=== PATIENT | male | born 1980 | race Caucasian/White ===

== ENCOUNTER 2020-04-05 06:50 | Outpatient (CLI) | payer OTHER, SELFPAY | END 2020-04-05 06:51 | disposition home or self-care (01) | PROVIDERS: PCP Internal Medicine; Visit Provider Plastic Surgery | DX: Z01.818 Encounter for other preprocedural examination (principal); Z11.59 Encounter for screening for other viral diseases | CPT/HCPCS: 87635; C9803; U0003 ==

== ENCOUNTER 2020-04-07 00:38 | Outpatient (CLI) | payer OTHER, SELFPAY ==
[2020-04-07 17:59] LABS: SARS-CoV-2 RNA PCR Negative
== END 2020-04-07 00:39 | disposition home or self-care (01) ==
LOC: ANHCOVIDDT 00:38
PROVIDERS: PCP Internal Medicine; Visit Provider Plastic Surgery
DX: Z01.818 Encounter for other preprocedural examination (principal); Z11.59 Encounter for screening for other viral diseases
CPT/HCPCS: 87635; C9803; U0003

== ENCOUNTER 2020-04-08 02:28 | Day surgery (SDC) | payer OTHER, SELFPAY ==
[2020-03-31 10:47] VITALS: BMI 30.7
--- NOTE | 2020-04-06 20:47 | HP_ITS ---
DATE OF SERVICE: DATE OF PLANNED SERVICE: 04/07/2020. PREOPERATIVE DIAGNOSES: Left carpal tunnel syndrome and left ulnar neuropathy at the elbow. HISTORY: The patient has had symptoms for several months. He has a nerve conduction test indicating left ulnar neuropathy and right carpal tunnel syndrome. By exam and history, he has both conditions on both upper extremities. The right was slightly worse and has been operated. He is prepared for these surgeries with the knowledge that there can be infections and nerve injury, scarring, and other possible complications. MEDICATIONS: He takes Celexa only. ALLERGIES: HE HAS NO KNOWN ALLERGIES TO MEDICATION. PAST SURGICAL HISTORY: He does not list surgeries prior to the recent neuroplasties. He does not list chronic ailments. He is a nonsmoker. REVIEW OF SYSTEMS: Otherwise negative. FAMILY HISTORY: Noncontributory. SOCIAL HISTORY: He lives in [place]. He works for the [employer]. He is a patient of Dr. Servin. PHYSICAL EXAMINATION: GENERAL: He is 6 feet tall, 250 pounds. He is in no acute distress. HEENT: Unremarkable. CHEST: Clear to auscultation. HEART: Regular rate and rhythm by palpation. ABDOMEN: Soft and nontender. EXTREMITIES: Specifically reveals tenderness of both thenar masses. He has a Tinel's at both wrists. He has provocative pain in both forearms. He has a Tinel's at both elbows and wrist compression test was positive bilaterally. ASSESSMENT: Left carpal tunnel syndrome and left cubital tunnel syndrome and our plan is to release the left carpal tunnel and left cubital tunnel, and he is aware that there may be need to transpose that nerve anterior to the medial epicondyle. Raven I MT: Luci
--- NOTE | 2020-04-08 07:49 | WPDHPUPDATE1 ---
History and Physical Update Update Date/Time: 04/08/20 07:49 History and Physical has been reviewed, including an updated exam of the patient. There are NO changes in the patient's condition. Risks, benefits, and alternatives have been discussed and questions answered. Patient agrees to proceed with procedure.
[2020-04-08] MEDS: LACTATED RINGERS 1,000 ML 30 ML IV CONT (08:37)
[2020-04-08 08:51] VITALS: BP 123/69; PULSE 52; RESP 20; TEMP 36.4; O2SAT 98
--- NOTE | 2020-04-08 09:24 | P.PNAN_ITS ---
Anes - Initial Pre Proc Eval Procedure: Operation Date: 04/08/20 10:15 Proposed Procedures p Left Carpal Tunnel Release - Morales Toribio MD s Left Ulnar Neuroplasty - Morales Toribio MD Date/Time: 04/08/20 09:24 Surgeon: Morales Toribio MD Pre Op Diagnosis: Left Carpal Tunnel Syndrome, Left Cubital Tunnel Patient Data Age: 39 Gender: M Height: 5 ft 11 in Weight: 99.6 kg Last Vital Signs Temp 36.4 C L 04/08/20 08:51 Pulse 52 L 04/08/20 08:51 Resp 20 04/08/20 08:51 BP 123/69 04/08/20 08:51 Pulse Ox 98 04/08/20 08:51 Allergies Allergy/AdvReac Type Severity Reaction Status Date / Time No Known Allergies Allergy Unknown Verified 04/08/20 08:54 Home Medications Medication Instructions Recorded Confirmed Type citalopram 10 mg tablet 10 mg PO DAILY #90 tablet 10/13/19 04/08/20 Rx alprazolam 0.5 mg tablet 0.5 mg PO BID PRN #30 tablet 03/15/20 04/08/20 Rx Patient hx anesthesia problems: none Family hx anesthesia problems: none [facility] Past Medical History Medical History (Updated 04/08/20 @ 09:25 by Pb Wong MD) Anxiety Carpal tunnel syndrome Family History Family History Mother Patient's mother is in good health Father Patient's father is in good health Social History Social History Smoking status: Never smoker Second hand tobacco smoke exposure: No Alcohol intake: current Anes - Eval Final PreProcedure Day of Procedure 04/08/20 09:24 Patient weight: overweight Heart: regular rate and rhythm Lungs: clear to auscultation Airway: Mallampati scale class II Neurological: alert and oriented Last oral intake: >/= 8 hours ASA classification: II Emergent: no Anesthetic plan: proceed Anesthesia type and monitoring: general GIVS and standard monitoring Informed Consent: The patient's anesthetic plan and its attendant risks and benefits were discussed with the patient/family/POA. Questions were solicited and answers provided to the satisfaction of the patient/family/POA.
--- NOTE | 2020-04-08 10:25 | PM.OP ---
Procedure Note - Brief Procedure Note - Brief Date of procedure: 04/08/20 Pre-op diagnosis: Left Carpal Tunnel Syndrome, Left Cubital Tunnel Post-op diagnosis: same Procedure performed: L OCTR and L ulnar neuroplasty at the elbow. Anesthesia: MAC Surgeon: Morales Toribio MD Estimated blood loss (mL): 3 Drains: No Packing: No Pathology: none sent Complications: No immediate complications Condition: stable Disposition: same day
[2020-04-08] MEDS: BACITRACIN OINTMENT 15 GM TUBE 1 APPLIC TOPICAL (10:46)
[2020-04-08] MEDS: LIDO 1%/EPINEPHRINE 1:100,000 20 ML VIAL 5 ML INFILTRATE (10:47)
[2020-04-08 11:34] VITALS: BP 126/65; PULSE 78; RESP 16; TEMP 36.1; O2SAT 95
--- NOTE | 2020-04-08 11:51 | PM.PROC ---
Procedure Note - Detailed Date of procedure: 04/08/20 Pre-op diagnosis: Left Carpal Tunnel Syndrome, Left Cubital Tunnel Post-op diagnosis: same Procedure performed: left carpal tunnel release and left ulnar neuroplasty at the elbow Description of procedure: the left carpal tunnel and left cubital tunnel in marked on the patient while in preop. He was taken to the operating room and placed supine on the operating table. A time-out was held and confirmed. The extremity was prepped and draped in usual fashion. He was given IV sedation. The sites were remarked on his hand and arm. Each was infiltrated with 1% lidocaine with epinephrine. The tourniquet was inflated to 250 mmHg. The left carpal tunnel was done 1st. This involved an incision in the palm as marked and blunt dissection to the palmar fascia. This and the carpal ligament were incised with a 15. Blade. Under 3 point retraction the ligament was divided distally and proximally for complete release. There was no unusual anatomy. The wound was closed with interrupted 4-0 nylon suture. Attention was turned to the elbow which was flexed and supported on folded towels. The incision was made as marked and dissection was carried through the subcutaneous tissue to the interface between the medial epicondyle and the triceps muscle. The ulnar nerve was identified snugly applied against the triceps muscle. This nerve was unroofed throughout the length of the incision. It was released proximally from overlying connective tissue another inch or so. Distally the muscle fascia was split and pressure was released from the nerve in that direction. The Goff ligament was also divided. It would appear that the cause of his cubital tunnel syndrome is the large triceps muscle displacing the ulnar nerve, forcing it into a serpiginous course to the cubital tunnel. . We did not deem it necessary to transpose the nerve. The wound was closed with intradermal 3-0 Monocryl sutures and running intradermal 3-0 Monocryl The usual bulky bandages were applied to both sites. The tourniquet was released. He is discharged home with instructions in wound care and follow-up. He has a prescription for hydrocodone . Surgeon: Morales Toribio MD
[2020-04-08 12:00] VITALS: BP 129/66; PULSE 68; RESP 16; O2SAT 96
[2020-04-08 12:30] VITALS: BP 114/77; PULSE 48; RESP 16
--- NOTE | 2020-04-08 12:59 | SUR.PHASEII ---
1259; PT DRESSED. INSTRUCTIONS GIVEN. WAITING ON RIDE HOME. DENIES PAIN.
== END 2020-04-08 13:05 | disposition home or self-care (01) ==
PROVIDERS: PCP Internal Medicine; Visit Provider Plastic Surgery
PROC: (CPT 64721; principal; 2020-04-08 10:15)
PROC: (CPT 64721; 2020-04-08 10:15)
DX: G56.02 Carpal tunnel syndrome, left upper limb (principal); G56.22 Lesion of ulnar nerve, left upper limb; F41.9 Anxiety disorder, unspecified
CPT/HCPCS: 64721; 64718; A9270; J2250; J2405; J2704; J3010; J7120

== ENCOUNTER 2021-10-28 08:02 | Outpatient (RCR) | payer OTHER, SELFPAY ==
[2021-10-28 09:29] VITALS: BP 136/86; PULSE 68; RESP 20; TEMP 36.2; O2SAT 98
[2021-10-28] MEDS: diphenhydrAMINE HCl CAP 25 MG CAPSULE PO (09:36)
[2021-10-28] MEDS: ACETAMINOPHEN 325 MG TABLET 650 MG PO (09:36)
[2021-10-28] MEDS: FAMOTIDINE 20 MG TABLET PO (09:36)
[2021-10-28 11:12] VITALS: BP 138/80
--- NOTE | 2021-10-31 08:43 | PC.NURSE ---
Called Mr Cintron and he is feeling much better he stated, and has no questions at this time.
== END 2021-10-28 17:00 ==
LOC: AMCINF 08:02
PROVIDERS: PCP Internal Medicine; Visit Provider Internal Medicine Hematology & Oncology
DX: U07.1 COVID-19 (principal)
CPT/HCPCS: A9270; M0245; Q0245

== ENCOUNTER → 2021-12-27 14:00 | Outpatient (CLI) | payer OTHER, SELFPAY ==
--- NOTE | ~2021-12-27 | XR_ITS ---
XR wrist LT min 3V DATE: 12/27/2021 14:13 INDICATION: Left wrist pain TECHNIQUE: 4 views COMPARISON: None FINDINGS: No fracture or dislocation, periosteal reaction or bone destruction, erosive change or gela drocalcinosis. Joint spaces are preserved. IMPRESSION: Negative Reviewed, dictated and finalized at location A. [employer] IMPRESSION: Negative
== END ==
PROVIDERS: PCP Internal Medicine; Visit Provider Internal Medicine
DX: M25.532 Pain in left wrist (principal)
CPT/HCPCS: 73110

== ENCOUNTER 2022-01-17 10:05 | Outpatient (RCR) | payer OTHER, SELFPAY ==
--- NOTE | 2022-01-17 11:51 | OTOPEVAL ---
OCCUPATIONAL THERAPY INITIAL EVALUATION REPORT 01/17/22 Jacques is a 41 year-old, right handed male who is referred to outpatient hand therapy with left wrist pain. With palpation we are able to see the FCU and ECU tendons are tender and inflamed and he has signs and symptoms of a possible TFCC injury. The mechanism of injury appears to be more degenerative vs. traumatic due to the nature of his job. It was recommended that the patient immobilize the wrist with a wrist cock up brace (he has one from earlier on in the injury, but never wore for a prolonged period). He also has been educated on restricting any weight bearing through an extended wrist and forceful/resisted pronation. Educated on reducing inflammation via the use of ice or Voltaren. He verbalizes excellent understanding of all the discussions today. Plan to have him follow this treatment plan independently x4 weeks and then return for a follow up to assess the efficacy of these interventions. If there has been no change, he may benefit from an MRI. Thank you for referring Jacques Cintron to [facility].? The patient is scheduled to be seen for therapy? 0-1x/week for 4 weeks. Please review, sign, date and return this plan of care SHAUNA. I agree with and certify that the following plan of care is medically necessary. Referring Physician Date Referring Provider: Morales Toribio MD *OT Outpatient Evaluation Start: 01/17/22 10:36 Therapy Assessment Status Assessment Status Assessment Status Evaluation Outpatient Past Medical History Neurological History Hx Neurological Disorders No Significant History Cardiovascular History Hx Cardiac Disorders No Significant History Respiratory History Hx Respiratory Disorders No Significant History Gastrointestinal History Hx Gastrointestinal Disorders No Significant History Genitourinary History Hx Genitourinary Disorders No Significant History Musculoskeletal History Hx Musculoskeletal Disorders No Significant History Hematological History Hx Hematological Disorders No Significant History Endocrine History Hx Endocrine Disorders No Significant History HEENT History Hx HEENT Disorders No Significant History Integumentary History Hx Eczema Yes Reproductive History Hx Reproductive Disorders No Significant History Psychosocial History Hx Anxiety Yes Pain History History of Any Previous or Ongoing No Significant History Instance of Pain Anesthesia History Hx Anesthesia Reactions No Significant History Other History Hx Other Surgeries Yes: RIGHT CTR 01/2020 Evaluation Information Problem Diagnosis volar ulnar left wrist pain Subjective Information Patient reports this pain Query Text:As Reported By Patient/ going on for about a year. [facility] noticed after a day where he was leaning on his left wrist in an extended position for a prolonged period of time. 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
--- NOTE | 2022-02-14 14:10 | PCOTNOTE ---
OCCUPATIONAL THERAPY DISCHARGE SUMMARY 02/14/22 Patient:Jacques Cintron Date of :1980 Patient has not returned for any further treatments since his initial evaluation on 01/17/2022, therefore he will be discharged at this time. On his initial evaluation, therapy was suspect of a possible TFCC injury. It was recommended that the patient immobilize the wrist with a wrist cock up brace, which he already owned, but never wore for a prolonged period. He was educated on restricting weight bearing through that wrist and any forceful/resisted pronation. The patient did not show for his follow up session today. Phoned the patient who reports that his wrist does feel better and declined to reschedule and in-person follow up. He reports compliance with intermittent immobilization, adapting work tasks, and taping his wrist when working out. He plans to continue this regime for a while longer and he is going to monitor his symptoms. Recommended that he follows up with MD in the future if he feels his wrist is worse. He may need an MRI in the future if conservative measures do not work. Thank you for referring this patient to [facility]. Please review, sign, date and return this discharge summary SHAUNA. I have been updated about the patient's current status and I agree with discharge from the above service at this time. Referring Physician Date Referring Physician: Morales Toribio MD
== END 2022-04-03 09:10 | disposition home or self-care (01) ==
LOC: ANHOT 10:05
PROVIDERS: PCP Internal Medicine; Visit Provider Plastic Surgery
DX: M25.532 Pain in left wrist (principal)
CPT/HCPCS: 97110; 97166

== ENCOUNTER → 2023-11-13 12:32 | Outpatient (CLI) | payer OTHER, SELFPAY ==
--- NOTE | ~2023-11-13 | MR_ITS ---
EXAMINATION: MR shoulder RT wo con DATE: 11/13/2023 13:10 INDICATION: Right shoulder pain. TECHNIQUE: Magnetic resonance imaging (MRI) of the right shoulder was performed without intravenous c ontrast. Sequences included axial PD-weighted FS FSE, coronal oblique PD-weighted FS FSE and T2-weigh ingrid FS FSE, and sagittal oblique T2-weighted FS FSE and T1-weighted FSE. COMPARISON: None. FINDINGS: Coracoacromial arch: The acromion undersurface is curved in morphology (type II). There is severe acromioclavicular joint osteoarthritis. There is mild subacromial/subdeltoid bursitis. Rotator cuff: There is mild supraspinatus tendinopathy and moderate infraspinatus tendinopathy. Teres minor tendon is normal. There is mild subscapularis tendinopathy. There is mild fatty atrophy of teres minor muscl e belly. There is degenerative cystic change in greater tuberosity. Biceps tendon and glenoid labrum: Biceps tendon is in bicipital. Intra-articular biceps tendon is normal. The glenoid labrum is normal. Fluid: There is no glenohumeral joint effusion. Bones/cartilage: Glenoid cartilage is normal. Humeral head cartilage is normal. IMPRESSION: 1. Moderate rotator cuff tendinopathy. No tear. 2. Mild fatty atrophy of teres minor muscle belly, consistent with quadrilateral space syndrome. 3. Severe acromioclavicular joint osteoarthritis. 4. Mild subacromial/subdeltoid bursitis. Reviewed, dictated and finalized at location E. [employer] IMPRESSION: 1. Moderate rotator cuff tendinopathy. No tear. 2. Mild fatty atrophy of teres minor muscle belly, consistent with quadrilatera l space syndrome. 3. Severe acromioclavicular joint osteoarthritis. 4. Mild subacromial/subdeltoid bursitis.
== END ==
PROVIDERS: PCP Physician Assistant; Visit Provider Physician Assistant
DX: M19.011 Primary osteoarthritis, right shoulder (principal); M75.51 Bursitis of right shoulder
CPT/HCPCS: 73221

== ENCOUNTER → 2023-11-23 12:39 | Outpatient (CLI) | payer OTHER, SELFPAY ==
--- NOTE | ~2023-11-23 | XR_ITS ---
Right Shoulder Technique: AP and axillary views were obtained. Clinical History: Pain Findings: No fracture or dislocation is seen. Osseous alignment is anatomic. The glenohumeral and acr omioclavicular joint spaces are preserved. Soft tissues are unremarkable. Impression: Unremarkable right shoulder radiographs. [place] [facility] [place]: Unremarkable right shoulder radiographs.
== END ==
PROVIDERS: PCP Physician Assistant; Visit Provider Physician Assistant
DX: M25.511 Pain in right shoulder (principal)
CPT/HCPCS: 73030